=== PATIENT | female | born 2000 | race Caucasian/White ===

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

== ENCOUNTER 2018-12-06 22:40 | Emergency (ER) | payer OTHER ==
[2018-12-06 22:50] VITALS: BP 143/84
--- NOTE | 2018-12-06 22:56 | ED ---
- HPI Summary HPI Summary: Patient is a 18 y/o F who is 39 weeks presenting to ED via EMS for possible labor. She states that pain onset three days ago and she believes that her water may have broke earlier today as there is vaginal discharge with her contractions. Dr. Veloz is the patient's OBGYN. Patient was 3 cm as of yesterday morning. This is reported to be her first . Patient's due date is the November,. On triage, pain is rated 7/10, nothing is noted to aggravate/alleviate Sx. Home medications and allergies are reviewed. - History of Current Complaint Stated Complaint: "39 WKS THINKS WATER BROKE PER EMS" Hx Obtained From: Patient Chief Complaint: Vaginal Discharge Onset/Duration: Started Hours Ago - vaginal discharge with contractions today, Started Days Ago - pain onset 3 days ago, Still Present Timing: Lasting Hours - vaginal discharge with contractions today, Lasting Days - pain onset 3 days ago Severity: Severe Current Severity: Severe Pain Intensity: 7 Character: Other: - contractions Aggravating Factors: Nothing Alleviating Factors: Nothing Associated Signs and Symptoms: Positive: Vaginal Bleeding or Discharge - discharge - Assessment Hx : 1 SAB: 0 IEA: 0 - Additional Pertinent History Primary Care Physician: [id number] Maternal Blood Type and Rh: A Positive - Allergies/Home Medications Allergies/Adverse Reactions: Allergies Allergy/AdvReac Type Severity Reaction Status Date / Time dehydrated strawberries Allergy Severe Hives Uncoded 12/06/18 23:30 PMH/Surg Hx/FS Hx/Imm Hx Endocrine/Hematology History: Denies: Hx Diabetes Cardiovascular History: Denies: Hx Hypertension, Hx Pacemaker/ICD Respiratory History: Reports: Hx Asthma GI History: Reports: Hx Gastroesophageal Reflux Disease History: Reports: Hx Kidney Infection - reflux pylonephitis, Hx Renal Disease - born with reflux; h/o recurrent UTI's as child RECENT PYLEONEPHRITIS Denies: Hx Dialysis, Hx Kidney Stones Sensory History: Reports: Hx Contacts or Glasses Denies: Hx Hearing Aid Opthamlomology History: Reports: Hx Contacts or Glasses Psychiatric History: Reports: Hx Anxiety, Hx Depression Denies: Hx Eating Disorder, Hx Panic Disorder, Hx of Violent Episodes Against Others - Surgical History Surgery Procedure, Year, and Place: CYST REMOVED FROM THROAT;. TISSUE REMOVED FROM SKIN ON CHEEK; - Family History Known Family History: Positive: Respiratory Disease - asthma - Social History Alcohol Use: None Hx Substance Use: No Substance Use Type: Reports: None Hx Tobacco Use: No Smoking Status (MU): Never Smoked Tobacco Have You Smoked in the Last Year: No Review of Systems Negative: Fever - on vitals, temp is 98.6 F Genitourinary: Other - POSITIVE - CONTRACTIONS REPORTED Positive: discharge - vaginal All Other Systems Reviewed And Are Negative: Yes Physical Exam - Summary Physical Exam Summary: VITAL SIGNS: Reviewed. GENERAL: Patient is a well-developed and nourished female who is lying comfortable in the stretcher. Patient is not in any acute respiratory distress. HEAD AND FACE: No signs of trauma. No ecchymosis, hematomas or skull depressions. No sinus tenderness. EYES: PERRLA, EOMI x 2, No injected conjunctiva, no nystagmus. EARS: Hearing grossly intact. Ear canals and tympanic membranes are within normal limits. MOUTH: Oropharynx within normal limits. NECK: Supple, trachea is midline, no adenopathy, no JVD, no carotid bruit, no c- spine tenderness, neck with full ROM CHEST: Symmetric, no tenderness at palpation LUNGS: Clear to auscultation bilaterally. No wheezing or crackles. CVS: Regular rate and rhythm, S1 and S2 present, no murmurs or gallops appreciated. ABDOMEN: Soft, non-tender. No signs of distention. No rebound no guarding, and no masses palpated. Bowel sounds are normal. VAGINAL EXAM: edema of vulva, cervic is 4 cm and about 80% effaced, minimal blood. EXTREMITIES: FROM in all major joints, no edema, no cyanosis or clubbing. NEURO: Alert and oriented x 3. No acute neurological deficits. Speech is normal and follows commands. SKIN: Dry and warm - Physical Exam Triage Information Reviewed: Yes Vital Signs On Initial Exam: Initial Vitals Temp Pulse Resp BP Pulse Ox 98.6 F 95 22 143/84 97 12/06/18 22:47 12/06/18 22:47 12/06/18 22:47 12/06/18 22:47 12/06/18 22:47 Vital Signs Reviewed: Yes Course/Dx - Course Course Of Treatment: Patient is a 18 y/o F who is 39 weeks presenting to ED via EMS for possible labor. She states that pain onset three days ago and she believes that her water may have broke earlier today as there is vaginal discharge with her contractions. Dr. Veloz is the patient's OBGYN. Patient was 3 cm as of yesterday morning. This is reported to be her first . Patient's due date is the November,. On physical exam, edema of vulva, cervic is 4 cm and about 80% effaced, minimal blood. Patient's case was discussed with Dr. Valentin, Dr. Valentin states patient can be discharged from ED and go directly to OB. - Diagnoses Provider Diagnoses: Active labor - Provider Notifications Discussed Care Of Patient With: Mackenzie Valentin Time Discussed With Above Provider: 22:59 Instructed by Provider To: Other - Patient's case was discussed with Dr. Valentin , Dr. Valentin states patient can be discharged from ED and go directly to OB. Discharge - Sign-Out/Discharge Documenting (check all that apply): Patient Departure - discharge Patient Received Moderate/Deep Sedation with Procedure: No - Discharge Plan Condition: Stable Disposition: HOME Patient Education Materials: (ED) Referrals: Martita Rushing MD [Primary Care Provider] - As Soon As Possible Additional Instructions: GO DIRECTLY TO OBGYN AFTER DISCHARGE. - Billing Disposition and Condition Condition: STABLE Disposition: Home - Attestation Statements Document Initiated by Francisco: Yes Documenting Scribe: OSBALDO MARTINEZ Provider For Whom Francisco is Documenting (Include Credential): JOSE F VALENTINE MD Scribe Attestation: OSBALDO Adam, scribed for JOSE F VALENTINE MD on 12/07/18 at 0613. Scribe Documentation Reviewed: Yes Provider Attestation: The documentation as recorded by the OSBALDO donovan accurately reflects the service I personally performed and the decisions made by me, JOSE F VALENTINE MD Status of Scribe Document: Viewed
== END 2018-12-06 23:18 | disposition home or self-care (01) ==
LOC: ED 22:40
DX: O60.03 Preterm labor without delivery, third trimester (principal)

== ENCOUNTER 2018-12-06 23:08 | Inpatient (IN) | payer OTHER ==
[2018-12-06 23:27] LABS: Hematocrit 39 % (35-47); Hemoglobin 13.1 g/dL (12.0-16.0); Mean Corpuscular HGB Conc 34 g/dL (31-36); Mean Corpuscular Hemoglobin 30 pg (27-31); Mean Corpuscular Volume 88 fL (80-97); Mean Platelet Volume 8.5 fL (7.4-10.4); Platelet Count 268 10^3/uL (150-450); Red Blood Count 4.41 10^6 /uL (3.70-4.87); Red Cell Distribution Width 14 % (10.5-15); White Blood Count 12.3 10^3/uL (3.5-10.8)
[2018-12-06] MEDS ORDERED: Penicillin G Potassium IV* 5,000,000 UNITS in NS 0.9% 100 ML* 100 ML IVPB ONE (23:30)
[2018-12-06] MEDS ORDERED: Lactated Ringers 1000 ML Bag* 1,000 ML IV SCH (23:45)
--- NOTE | 2018-12-06 23:52 | HP ---
General Information - Reason for Visit rupture membranes 10:30 PM - General Information Maternal Age: 18 Grav: 1 Para: 0 SAB: 0 IEA: 0 Estimated Due Date: 12/10/18 Determined By: Early Ultrasound Maternal Blood Type and Rh: A Positive - Results this Serology/RPR Result: Non-Reactive Rubella Result: Immune HBsAg Result: Negative HIV Result: Negative GBS Culture Result: Positive Past Medical History Delivery History: See Records Pertinent Past Medical History: See Records Pertinent Family History: See Records - Antepartal Records Antepartal Records: Reviewed, Uncomplicated Review of Systems Constitutional: Uncomfortable CV Complaint: No Respiratory: Shortness of Breath: No Gastrointestinal: No Nausea/Vomiting, Normal Bowel Movement Genitourinary: Leaking Fluid, No Dysuria, No Bleeding Musculoskeletal: No Complaint Neurological: No Headache Movement: Normal Exam Allergies/Adverse Reactions: Allergies dehydrated strawberries Allergy (Severe, Uncoded 12/06/18 23:30) Hives T :98.5 BP: 143/89 P : 90 RR : 20 Lab Values - Entire Visit: Laboratory Tests 12/06/18 12/06/18 23:15 23:15 WBC 12.3 H RBC 4.41 Hgb 13.1 Hct 39 MCV 88 MCH 30 MCHC 34 RDW 14 Plt Count 268 MPV 8.5 Blood Type A Positive - Measurements Height: 5 ft 2 in Weight: 170 lb Weight in lbs: [phone] Body Mass Index (BMI): 31.1 Pre- Weight: 140 lb Weight Gained This : 30 lbs and 0 ozs - Exam Breast: Breast Exam Deferred CVA: No CVA Tenderness Extremities: No Edema Heart: Normal Rhythm/Heart Sounds HEENT: No Significant Findings Lungs: Clear Bilaterally Rectal: Rectal Exam Deferred - Abdominal Exam Abdomen Exam: Non-Tender - Ultrasound/Biophysical Profile Ultrasound Status: Not Done Targeted Exam Findings Cervical Exam: 5cm Effacement: 100% Station: -1 Presenting Part: Vertex Membrane Status: Leaking Amniotic Fluid Evaluation: Gross Rupture EFM Findings - External Monitor Findings Baseline Heart Rate: 140 External Monitor Findings: Accelerations Present, No Pattern of Variable or Late Decelerations, Variability Moderate Contractions: Regular - Q 3' Assessment/Plan - Obstetrical Risk Factors Obstetrical Risk Factors: GBS Positive - Plan Plan: Antibiotic Prophylaxis, Admit - Anticipate Vaginal Delivery
[2018-12-06] MEDS ORDERED: OBEPIDURAL* 250 ML EPIDURAL ONE (23:53)
[2018-12-06] MEDS ORDERED: Buffered Lidocaine 1% SYRIN* 1 ML/SYRINGE INTRADERM ONE (23:53)
[2018-12-06] MEDS ORDERED: Lactated Ringers 1000 ML Bag* 1,000 ML IV ONE (23:53)
[2018-12-07] MEDS ORDERED: Lidocaine 2% EPI 1:200000 MPF*10-20 ML VIAL ONE (00:31)
[2018-12-07] MEDS ORDERED: Famotidine TAB* 20 MG PO PRN (00:53)
[2018-12-07] MEDS ORDERED: Lactated Ringers 1000 ML Bag* 1,000 ML IV ONE (00:53)
[2018-12-07] MEDS ORDERED: Lactated Ringers 1000 ML Bag* 500 ML IV PRN ×2 (00:53)
[2018-12-07] MEDS ORDERED: Phenylephrine 40 MCG/ML SYRINGE IV PUSH PRN ×2 (00:53)
[2018-12-07] MEDS ORDERED: Sodium Citrate/Citric Acid* 15 ML UDC PO PRN (00:53)
[2018-12-07] MEDS ORDERED: Lactated Ringers 1000 ML Bag* 1,000 ML IV SCH ×3 (01:00→05:00)
[2018-12-07] MEDS ORDERED: OBEPIDURAL* 250 ML EPIDURAL SCH (01:00)
[2018-12-07] MEDS ORDERED: Penicillin G Potassium IV* 2,500,000 UNITS in NS 0.9% 100 ML* 100 ML IVPB SCH (03:30)
[2018-12-07] MEDS ORDERED: Oxytocin in LR* 20 UNITS/1,000 ML BAG IVPB ONE (04:13)
[2018-12-07] MEDS ORDERED: Dibucaine 1% 28.35 GM TUBE PR PRN (04:55)
[2018-12-07] MEDS ORDERED: Glycerin ADULT SUPP PR PRN (04:55)
[2018-12-07] MEDS ORDERED: Witch Hazel PAD* JAR TOPICAL PRN (04:55)
[2018-12-07] MEDS ORDERED: Acetaminophen TAB* 325 MG PO PRN (04:55)
[2018-12-07] MEDS ORDERED: Oxytocin in LR* 20 UNITS/1,000 ML BAG IVPB SCH (05:00)
--- NOTE | 2018-12-07 05:00 | PROCNOTE ---
[facility] OB: Delivery Note - Delivery A Date of : 12/07/18 Time of : 04:37 Sex: Male Score 1 Minute: 9 Score 5 Minutes: 9 Gestational Age in Weeks and Days at Delivery: 39 Weeks and 4 Days Delivery Method: Spontaneous Vaginal Labor: Spontaneous Did Patient attempt ?: N/A, No Previous Amniotic Fluid: Clear Estimated Blood Loss: 200 Anesthesia/Analgesia: CEI for Labor Anesthesia Comment: epidural for labor Delivered By: Mackenzie Valentin - Nursery Level of Nursery: Regular/Bedside - Perineum Perineal Injury: 2nd Degree Perineal Injury Comment: repaire wiht 2.0 vicryl X 1 standard fashion Perineal Repair: By Delivering Practioner - Events Delivery Events of Note: Pitocin Only After Delivery
[2018-12-07] MEDS: Ibuprofen TAB* 600 MG PO PRN ×3 (07:37→22:22)
[2018-12-07] MEDS: Docusate CAP* 100 MG PO SCH ×2 (07:37→14:48)
[2018-12-07] MEDS ORDERED: Simethicone TAB* 80 MG TAB.CHEW PO SCH (08:30)
[2018-12-07] MEDS: Cetirizine* 10 MG TAB PO SCH (11:53)
[2018-12-07] MEDS: Prenatal Vitamin TAB PO SCH (11:54)
[2018-12-07] MEDS: OMEPRAZOLE 10 MG PO SCH (14:31)
[2018-12-08 06:21] LABS: ABS Basophils 0.1 10^3/ul (0-0.2); ABS Eosinophils 0.3 10^3/ul (0-0.6); ABS Lymphocytes 2.9 10^3/ul (1.0-4.8); ABS Monocytes 0.6 10^3/ul (0-0.8); ABS Neutrophils 7.8 10^3/ul (1.5-7.7); Eosinophil % 2.3 %; Hematocrit 35 % (35-47); Hemoglobin 11.5 g/dL (12.0-16.0); Lymphocyte % 25.2 %; Mean Corpuscular HGB Conc 33 g/dL (31-36); Mean Corpuscular Hemoglobin 29 pg (27-31); Mean Corpuscular Volume 89 fL (80-97); Mean Platelet Volume 8.4 fL (7.4-10.4); Platelet Count 165 10^3/uL (150-450); Red Blood Count 3.92 10^6 /uL (3.70-4.87); Red Cell Distribution Width 14 % (10.5-15); White Blood Count 11.7 10^3/uL (3.5-10.8)
[2018-12-08] MEDS: Docusate CAP* 100 MG PO SCH ×3 (06:22→13:25)
[2018-12-08] MEDS: Ibuprofen TAB* 600 MG PO PRN ×2 (06:24→13:24)
[2018-12-08] MEDS: OMEPRAZOLE 10 MG PO SCH (07:55)
[2018-12-08] MEDS: Cetirizine* 10 MG TAB PO SCH (07:55)
[2018-12-08] MEDS: Prenatal Vitamin TAB PO SCH (07:55)
[2018-12-08] MEDS ORDERED: Ferrous Gluconate TAB* 324 MG TAB PO SCH (09:00)
[2018-12-09] MEDS: Ibuprofen TAB* 600 MG PO PRN (06:37)
[2018-12-09] MEDS: Docusate CAP* 100 MG PO SCH (07:04)
[2018-12-09] MEDS: Cetirizine* 10 MG TAB PO SCH (07:54)
[2018-12-09] MEDS: Prenatal Vitamin TAB PO SCH (07:55)
[2018-12-09 08:29] VITALS: BP 120/69
== END 2018-12-09 10:15 | disposition home or self-care (01) | DRG 560 ==
LOC: MCHOBOUT 23:08 → MCHOB 23:20 → EEVIPCON 23:20 → MCHOB 12-07 06:59
PROVIDERS: ADMIT Obstetrics & Gynecology; ATTEND Obstetrics & Gynecology
PROC: 10E0XZZ Delivery of Products of Conception, External Approach (ICD-10-PCS; principal; 2018-12-07)
PROC: 0KQM0ZZ Repair Perineum Muscle, Open Approach (ICD-10-PCS; 2018-12-07)
DX: O99.824 Streptococcus B carrier state complicating childbirth (principal); Z37.0 Single live birth; O99.344 Other mental disorders complicating childbirth; F41.8 Other specified anxiety disorders; O70.1 Second degree perineal laceration during delivery; Z3A.39 39 weeks gestation of pregnancy
CPT/HCPCS: 36415; 85025; 85027; 86850; 86900; 86901; A9270-GY; J2540

== ENCOUNTER 2019-01-09 10:20 | Emergency (ER) | payer OTHER ==
--- NOTE | 2019-01-09 11:30 | ED ---
HPI Febrile Illness - HPI Summary HPI Summary: This patient is a 18 year old female presenting to [facility] with a chief complaint of fever since last night. She reports abdominal pain and diarrhea. She states she has a clogged mammary duct on the right side, and is worried her fever may because of this. She reports pain in this area as well. - History of Current Complaint Chief Complaint: EDAbdPain Time Seen by Provider: 01/09/19 11:23 Hx Obtained From: Patient Onset/Duration: Started Hours Ago Timing: Constant Initial Severity: Mild Current Severity: Mild Pain Intensity: 2 Pain Scale Used: 0-10 Numeric - Additional Pertinent History Primary Care Physician: MAXIMILIANO - Allergy/Home Medications Allergies/Adverse Reactions: Allergies Allergy/AdvReac Type Severity Reaction Status Date / Time strawberry Allergy Severe Hives Verified 12/07/18 14:00 dehydrated strawberries Allergy Severe Hives Uncoded 12/06/18 23:30 PMH/Surg Hx/FS Hx/Imm Hx Endocrine/Hematology History: Denies: Hx Diabetes Cardiovascular History: Denies: Hx Hypertension, Hx Pacemaker/ICD Respiratory History: Reports: Hx Asthma GI History: Reports: Hx Gastroesophageal Reflux Disease History: Reports: Hx Kidney Infection - reflux pylonephitis, Hx Renal Disease - born with reflux; h/o recurrent UTI's as child RECENT PYLEONEPHRITIS Denies: Hx Dialysis, Hx Kidney Stones Sensory History: Reports: Hx Contacts or Glasses Denies: Hx Hearing Aid Opthamlomology History: Reports: Hx Contacts or Glasses Psychiatric History: Reports: Hx Anxiety, Hx Depression Denies: Hx Eating Disorder, Hx Panic Disorder, Hx of Violent Episodes Against Others - Surgical History Surgery Procedure, Year, and Place: CYST REMOVED FROM THROAT;. TISSUE REMOVED FROM SKIN ON CHEEK; Infectious Disease History: No Infectious Disease History: Denies: Traveled Outside the [place] in Last 30 Days - Family History Known Family History: Negative: Cardiac Disease - Social History Alcohol Use: None Hx Substance Use: No Substance Use Type: Reports: None Hx Tobacco Use: No Smoking Status (MU): Never Smoked Tobacco Have You Smoked in the Last Year: No Review of Systems Positive: Fever Positive: Abdominal Pain Positive: Other - Right breast pain All Other Systems Reviewed And Are Negative: Yes Physical Exam - Summary Physical Exam Summary: Appearance: The patient is well-nourished in no acute distress and in no acute pain. Skin: The skin is warm and dry and skin color reflects adequate perfusion. Medial mastitis on right breast. HEENT: The head is normocephalic and atraumatic. The pupils are equal and reactive. The conjunctivae are clear and without drainage. Nares are patent and without drainage. Mouth reveals moist mucous membranes and the throat is without erythema and exudate. The external ears are intact. The ear canals are patent and without drainage. The tympanic membranes are intact. Neck: The neck is supple with full range of motion and non-tender. There are no carotid bruits. There is no neck vein distension. Respiratory: Chest is non-tender. Lungs are clear to auscultation and breath sounds are symmetrical and equal. Cardiovascular: Heart is regular rate and rhythm. There is no murmur or rub auscultated. There is no peripheral edema and pulses are symmetrical and equal. Abdomen: The abdomen is soft and non-tender. There are normal bowel sounds heard in all four quadrants and there is no organomegaly palpated. Musculoskeletal: There is no back tenderness noted. Extremities are non-tender with full range of motion. There is good capillary refill. There is no peripheral edema or calf tenderness elicited. Neurological: Patient is alert and oriented to person, place and time. The patient has symmetrical motor strength in all four extremities. Cranial nerves are grossly intact. Deep tendon reflexes are symmetrical and equal in all four extremities. Psychiatric: The patient has an appropriate affect and does not exhibit any anxiety or depression. Triage Information Reviewed: Yes Vital Signs On Initial Exam: Initial Vitals Temp Pulse Resp BP Pulse Ox 97.6 F 82 18 109/75 96 01/09/19 10:26 01/09/19 10:26 01/09/19 10:26 01/09/19 10:26 01/09/19 10:26 Vital Signs Reviewed: Yes Diagnostics - Vital Signs Vital Signs Temp Pulse Resp BP Pulse Ox 01/09/19 10:26 97.6 F 82 18 109/75 96 - Laboratory Lab Statement: Any lab studies that have been ordered have been reviewed, and results considered in the medical decision making process. Course/Dx - Course Course Of Treatment: Ms. Rosado started running a fever and feeling lousy last night. She had a loose bowel movement but otherwise no focal symptoms except that for about 2 days she's felt like she has a clogged duct on the right but now it's getting more painful and red. She was nontoxic in appearance and had a mastitis on the right it's mildly tender. I don't find anything else on her exam and will treat the mastitis with Keflex. - Diagnoses Provider Diagnoses: Mastitis Discharge - Sign-Out/Discharge Documenting (check all that apply): Patient Departure - Discharge Patient Received Moderate/Deep Sedation with Procedure: No - Discharge Plan Condition: Stable Disposition: HOME Prescriptions: Cephalexin CAP* [Keflex CAP*] 500 mg PO QID #20 cap Patient Education Materials: Mastitis (ED) Referrals: Martita Rushing MD [Primary Care Provider] - Additional Instructions: Follow up with primary care provider. Return to ED with any new or worsening symptoms. - Billing Disposition and Condition Condition: STABLE Disposition: Home - Attestation Statements Document Initiated by Francisco: Yes Documenting Scribe: Ford Cleary Provider For Whom Francisco is Documenting (Include Credential): Wing Stephen MD Scribe Attestation: IFord, scribed for Wing Stephen MD on 01/09/19 at 1158. Scribe Documentation Reviewed: Yes Provider Attestation: The documentation as recorded by the Ford donovan accurately reflects the service I personally performed and the decisions made by me, Wing Stephen MD Status of Scribe Document: Viewed
[2019-01-09 12:04] VITALS: BP 94/64
== END 2019-01-09 12:03 | disposition home or self-care (01) ==
LOC: ED 10:20
DX: N61.0 Mastitis without abscess (principal)
CPT/HCPCS: 99282